=== PATIENT | male | born 1970 | race Caucasian/White ===

== ENCOUNTER → 2020-06-05 | Outpatient (CLI) | payer BC ==
--- NOTE | 2020-06-05 18:21 | MR ---
EXAMINATION TYPE: MR shoulder LT wo con DATE OF EXAM: 06/05/2020 COMPARISON: None HISTORY: Left shoulder pain Multiplanar multiecho imaging of the left shoulder was performed without contrast. Subscapularis tendon is intact. Glenoid celestina appear intact. There is mild thickening of the anterior labrum. The biceps tendon is intact. There is hypertrophic spurring at the AC joint with impingement on the supraspinatus muscle. There are mild degenerative signal changes within the supraspinatus ten don without a definite full-thickness tear. Humeral head is intact. I see no focal bone destruction. IMPRESSION: There is some intrasubstance tear of the supraspinatus tendon. No definite full-thickness tear. Hypertrophic moderate spurring at the AC joint with subacromial impingement. Moderate edema in the ac romion at the AC joint.. Arthritic hypertrophic changes of the anterior glenoid labrum.
--- NOTE | 2020-06-05 20:19 | MR ---
EXAMINATION TYPE: MR lumbar spine wo con DATE OF EXAM: 06/05/2020 COMPARISON: None HISTORY: Low back pain into mayda lower extremities, moreso left side Multiplanar multiecho imaging of the lumbar spine was performed without contrast. The lumbar vertebra have fairly normal alignment. There is narrowing of disc spaces throughout the bg mbar spine and more severe at L4-5 L5-S1. There is hypertrophic facet arthropathy with lateral recess stenosis at L4-5. There is no significant canal stenosis. I see no bony destructive process. There i s no compression fracture. There is no lumbar paraspinal mass. There is small posterior disc bulging throughout the lumbar spine and more noticeable at L3-4 L2-3 and L1-2 and T11-12. There is no signifi cant impingement on the neural elements due to posterior disc bulging. The visualized sacroiliac join ts are intact. IMPRESSION: Moderate multilevel spondylotic changes in the lumbar spine. Mild lateral recess stenosis at L4-5. No fracture seen.
== END | disposition home or self-care (01) ==
LOC: RADMRIMAIN 10:06
PROVIDERS: ATTEND Internal Medicine
DX: M75.102 Unspecified rotator cuff tear or rupture of left shoulder, not specified as traumatic (principal); M48.061 Spinal stenosis, lumbar region without neurogenic claudication; M47.816 Spondylosis without myelopathy or radiculopathy, lumbar region
CPT/HCPCS: 72148